=== PATIENT | female | born 1980 | race Caucasian/White ===

== ENCOUNTER 2018-10-24 12:27 | Outpatient (REF) | payer SELFPAY ==
[2018-10-25 00:10] LABS: FREE T4 0.99 ng/dL (0.76-1.46); TSH 6.72 uIU/mL (0.358-3.74)
== END 2018-10-24 12:47 ==
LOC: NCHCN 12:27
PROVIDERS: PCP Family Medicine; Visit Provider Family Medicine
DX: E03.9 Hypothyroidism, unspecified (principal)
CPT/HCPCS: 84439; 84443

== ENCOUNTER 2019-09-11 12:12 | Outpatient (REF) | payer MEDICAID, SELFPAY ==
--- NOTE | 2019-09-11 10:45 | PAPFT_PTH ---
PATIENT: Lisette Aranda LOC: [facility] U#:[id number] AGE/SX: 38/F ROOM: RE09/11/[address]: Tomasa Lanza V : 1980 BED: DIS: 09/11/2019 SPEC #: [id number] RECD: 09/12/19 12:47 STATUS: GRACE REQ #: [id number] STEPHAN: 09/11/19 10:[address]: Tomasa Lanza V DEPT: [facility] Cytology RECD BY: Adrianna Gupta Tissues: 1 - CX/ENDOCX FOR PAP SMEARS Procedures: PAP THIN PREP/UVM Screening Comments: [id number]
[2019-09-11 21:59] LABS: HGB 13.2 g/dL (12.0-15.5); Mean Corp. HGB Concentration 32.2 g/dL (32.0-36.0); Mean Corpuscular Hemoglobin 28.4 pg (27.0-33.0); Mean Corpuscular Volume 88.2 fL (80-95); Mean Platelet Volume 11.1 fL (8.0-11.0); Platelet Count 357 x1000/uL (130-400); RBC 4.65 m/cumm (4.00-5.20); RBC Distribution Width 13.8 % (11.7-14.6)
[2019-09-11 22:17] LABS: White Blood Cell Count 7.22 k/cumm (4.4-10.8)
[2019-09-11 22:26] LABS: Calculated LDL 130 mg/dL; Cholesterol 211 mg/dL (<200); Glucose 85 mg/dL (74-106); HDL Cholesterol 55 mg/dL (40-60); TSH 13.46 uIU/mL (0.36-3.74); Triglyceride 134 mg/dL (<150)
[2019-09-11 23:06] LABS: FREE T4 1.26 ng/dL (0.76-1.46)
== END 2019-09-11 12:32 ==
LOC: NCHCN 12:12
PROVIDERS: PCP Family Medicine; Visit Provider Family Medicine
DX: E03.9 Hypothyroidism, unspecified (principal); N92.1 Excessive and frequent menstruation with irregular cycle; Z01.419 Encounter for gynecological examination (general) (routine) without abnormal findings; Z12.4 Encounter for screening for malignant neoplasm of cervix; Z00.00 Encounter for general adult medical examination without abnormal findings
CPT/HCPCS: 80061; 82947; 85027; 88142; 84439; 84443

== ENCOUNTER 2019-09-19 03:19 | Outpatient (CLI) | payer MEDICAID, SELFPAY ==
--- NOTE | 2019-09-19 15:51 | DI.US_ITS ---
EXAM: US THYROID CLINICAL HISTORY: THYROMEGALY E01.0 TECHNIQUE: Ultrasound performed using standard protocol. COMPARISON: THYROID ULTRASOUND from 10/09/2014 FINDINGS: The right lobe of the thyroid gland measures 5.5 cm x 2.2 cm x 2.6 cm. The left lobe of the thyroid gland measures 6.1 cm x 3.3 cm x 3.5 cm. The isthmus measures 6 mm. Thyroid gland is diffusely heterogeneous without discrete mass. There is symmetric blood flow to the thyroid gland. IMPRESSION: Diffusely enlarged and heterogeneous thyroid gland. No discrete mass is present. This may represent an infiltrative or inflammatory thyroiditis. Please correlate clinically.
== END 2019-09-19 03:39 ==
PROVIDERS: PCP Family Medicine; Visit Provider Family Medicine
DX: E04.8 Other specified nontoxic goiter (principal); E01.0 Iodine-deficiency related diffuse (endemic) goiter
CPT/HCPCS: 76536

== ENCOUNTER 2020-07-22 21:51 | Emergency (ER) | payer MEDICAID, SELFPAY ==
[2020-07-22 21:55] VITALS: BP 108/85; PULSE 115; RESP 18; TEMP 37.2; O2SAT 98
--- NOTE | 2020-07-22 21:59 | ED.GENADUL_ITS ---
Discharge Plan Disposition Patient Disposition: HOME Condition: Good Discharge Details Clinical Impression: Dental infection Primary Care Provider: Tomasa Lanza V ED Provider: Eliu Clay [place] Meds and New Rx's Prescriptions: New amoxicillin-pot clavulanate [Augmentin] 875-125 mg tablet 1 tab PO Q12H Qty: 18 RF: 0 Discharge Instructions Instructions: Dental Abscess (ED) Additional Instructions: Take antibiotic as prescribed and finish the bottle regardless of how you are feeling. Alternate Tylenol with Motrin for pain. Use the benzocaine every 4-6 hours to help with pain. Contact dentist for follow-up next week. Return to ED for worsening pain/swelling, difficulty breathing, inability to swallow. Medical Decision Making Dental infection with induration but no definite abscess that is drainable here in ED. Will start on Augmentin and refer to dentistry next week. Return to ED for worsening symptoms, difficulty breathing, inability to swallow. HPI General Mode of arrival: ambulatory . Date/Time Provider Initiated Documentation: 07/22/20 21:59 . Limitations to Documentation: no limitations . Information obtained by: patient and RN notes reviewed . HPI Narrative: Patient presents to ED with right lower jaw pain with trauma and facial swelling and redness. Patient was fine yesterday. She woke up this morning with pain which is progressed to swelling and redness. She has no difficulty breathing or swallowing. She has no fever. She has had dental infections in the past. Related Data Home Medications Medication Instructions Recorded Confirmed amoxicillin-pot clavulanate 1 tab PO Q12H #18 tab 07/22/20 [Augmentin] Previous Rx's Medication Instructions Recorded amoxicillin-pot clavulanate 1 tab PO Q12H #18 tab 07/22/20 [Augmentin] Allergies Allergy/AdvReac Type Severity Reaction Status Date / Time topiramate [From Topamax] Allergy Mild HAND Unverified 07/22/20 22:18 PARESTHESIAS Review of Systems Narrative: As documented in HPI otherwise negative as below. Const: no fever, chills, weakness Resp: no cough, SOB, pleuritic pain CV: no CP, diaphoresis, edema, syncope GI: no abdominal pain, nausea, vomiting, diarrhea Neuro: no headache, numbness, focal weakness, confusion PFSH Medical History Hypothyroid Social History Smoking/Tobacco Use Status: Never Smoking risk assessment performed?: Yes Alcohol Intake: current Alcohol Intake frequency: holidays/special occasions only Drug use: Never Substance use type: does not use Do you feel safe at home: Yes Do you feel safe in your relationship?: Yes Exam Narrative Exam Narrative: Vitals: Afebrile. Mild tachycardia otherwise normal vitals and normal room air pulse ox. Const: WDWN female in NAD. HEENT: NC/AT. Right mandibular swelling with tenderness and induration. Mild erythema. Right lower gingival region tender and indurated. No definitive abscess. Floor of mouth normal. Eyes: Normal conjunctiva and sclera. Neck: Supple. Trachea midline. Right sided adenopathy. Lungs: Normal respiratory effort. Neuro: A+O x 3. Normal speech, mentation, gait. Cranial nerves II - XII grossly intact. No gross motor or sensory deficit. Skin: Warm and dry without rash.
[2020-07-22] MEDS: Benzocaine 20% Gel 30 GM JAR MM (22:18)
[2020-07-22] MEDS: Ibuprofen 600 MG TAB PO (22:18)
== END 2020-07-22 22:17 | disposition home or self-care (01) ==
LOC: ER 07-23 01:17
PROVIDERS: Emergency Provider Emergency Medicine; PCP Family Medicine
DX: R68.84 Jaw pain (principal); K04.7 Periapical abscess without sinus
CPT/HCPCS: 99283

== ENCOUNTER 2022-05-23 19:40 | Outpatient (REF) | payer MEDICAID, SELFPAY ==
[2022-05-23 15:20] LABS: ALT 25 U/L (14-59); AST 21 U/L (15-37); Albumin 4.1 g/dL (3.4-5.0); Alkaline Phosphatase 58 U/L (46-116); Anion Gap 7.1 mmol/L (3-11); BUN 12 mg/dL (7-18); Bilirubin, Total 0.6 mg/dL (0.2-1.0); CO2 29.9 mmol/L (21.0-32.0); CREATININE 0.8 mg/dL (0.55-1.02); Calcium 9.2 mg/dL (8.5-10.1); Chloride 104 mmol/L (98-107); FREE T4 1.34 ng/dL (0.76-1.46); Glucose 95 mg/dL (74-106); Potassium 3.7 mmol/L (3.5-5.1); Sodium 141 mmol/L (136-145); Total Protein 8.3 g/dL (6.4-8.2)
[2022-05-23 15:21] LABS: HCT 41.2 % (36.0-46.0); HGB 13.1 g/dL (11.2-15.7); MCH 28.3 pg (27.0-33.0); MCHC 31.8 % (32.0-36.0); MCV 89 fL (80-95); Platelet Count 281 10^3/uL (130-400); RBC 4.63 10^6/uL (3.93-5.22); RDW 13.3 % (11.7-14.6); RDW-SD 43.4 fL; WBC 7.17 10^3/uL (4.4-10.8)
[2022-05-23 16:55] LABS: Hemoglobin A1C 5.7 % (<5.7)
[2022-05-23 17:44] LABS: Calculated LDL 138 mg/dL (<100); Cholesterol 221 mg/dL (<200); HDL Cholesterol 59 mg/dL (40-60); Triglyceride 122 mg/dL (<150)
== END 2022-05-23 19:41 | disposition home or self-care (01) ==
LOC: NCHCN 19:40
PROVIDERS: PCP Family Medicine; Visit Provider Physician Assistant Medical
DX: R63.4 Abnormal weight loss (principal)
CPT/HCPCS: 80053; 80061; 85027; 83036; 84439; 84443

== ENCOUNTER → 2022-06-13 01:07 | Outpatient (CLI) | payer MEDICAID, SELFPAY ==
--- NOTE | 2022-06-13 12:15 | DI.MAMMO_ITS ---
Exam(s) MAMMO SCREENING EXAM: MAMMO SCREENING CLINICAL HISTORY: SCREENING, Z21.39, Z12.31. TECHNIQUE: Bilateral full field digital CC and MLO mammographic images were obtained with 3D tomosyn thesis and utilizing computer aided detection (CAD). COMPARISON: None. This is a baseline mammogram on this 41-year-old patient FINDINGS: Fibroglandular tissue pattern is moderately dense. In the left breast there is a partially calcified slightly lobulated nodular density medial of center approximately 7 cm in from the nipple and measuring 12 x 6 millimeters. This is probably a fibroade noma. No other significant left breast findings. In the opposite-right breast there is a subtle 6 x 5 millimeter nodular density medial of center appr oximately 5 cm in from the nipple, best seen on the CC view. Further imaging recommended There is no significant architectural distortion nor skin thickening-retraction. IMPRESSION: Bilateral findings as described above. Left breast probable fibroadenoma. Possible nodule also seen in the right breast. Recommend spot compression bilateral views and bilateral complete breast ultra sound. BI-RADS Category 0 - Assessment Incomplete: Need additional imaging evaluation Breast Density - Category C - Heterogeneously dense Breast density Category C or D implies that the patient has dense breast tissue. Dense breast tissue can make it harder to find cancer on a mammogram. Dense breast tissue is also associated with an incr eased risk of breast cancer. This information about the result of the mammogram report was provided to the patient to raise their awareness. Use this report when you speak with the patient about their risks for breast cancer, which includes their family history. At that time, you may recommend additional screening tests (Ultrasoun d or MRI) as these tests may add significant information. A negative radiographic report should not delay biopsy if a dominant or clinically suspicious mass is present. Up to ten percent of cancers are not identified on mammography. A negative report may reinforce clinical impression. Adenosis and dense breasts may obscure an underlying neoplasm. False positive reports average 6 to 10%. Patient will receive a letter notifying them of these results.
== END ==
PROVIDERS: PCP Family Medicine; Visit Provider Physician Assistant Medical
DX: Z12.31 Encounter for screening mammogram for malignant neoplasm of breast (principal); R92.8 Other abnormal and inconclusive findings on diagnostic imaging of breast
CPT/HCPCS: 77063; 77067

== ENCOUNTER → 2022-06-20 01:56 | Outpatient (CLI) | payer MEDICAID, SELFPAY ==
--- NOTE | 2022-06-20 | DI.US_ITS ---
Exam(s) US BREAST LT COMPLETE US BREAST RT COMPLETE MG MAMMO SCREEN CALL BACK BI EXAM: MG MAMMO SCREEN CALL BACK BI and bilateral complete breast ultrasound CLINICAL HISTORY: F/U MAMMO, LT BREAST NODULAR DENSITY, RT BREAST NODULAR DENSITY. TECHNIQUE: Craniocaudal and mediolateral oblique Full Field Digital Mammography views of the bilater al breast with Computer Aided Diagnosis followed by Tomosynthesis and bilateral breast ultrasound. COMPARISON: US US BREAST RT COMPLETE from 06/20/2022 US US BREAST LT COMPLETE from 06/20/2022 FINDINGS: Mammography/Tomosynthesis: Masses/Architectural Distortion: In the left breast, the well-circumscribed ovoid nodule with interna l calcifications is seen in the upper inner quadrant of the left breast. The calcifications have a c oarse appearance. In the right breast, no persistent mass is seen on the additional views. Microcalcifictions: No suspicious pleomorphic-type are seen. Skin Thickening/Nipple Retraction: None. Complete bilateral breast US: Echotexture: Normal appearance of the glandular tissue. Shadowing: No suspicious foci. Cyst: There is a 0.3 cm simple cyst at the 8 o'clock position of the right breast 5 cm from the nippl e. Solid lesions: There is a well-circumscribed nodule at the 10 o'clock position of the left breast 4 c m from the nipple. It contains internal echogenic foci consistent with the calcifications seen on th e mammogram. It measures 0.6 cm by 0.6 cm x 0.8 cm. Ductal dilation: None. IMPRESSION: 1. No definite evidence of malignancy is noted. 2. A six-month follow-up left mammogram and left breast ultrasound are requested for re-evaluation. 3. The findings were discussed with the patient on the date of the examination. BI-RADS Category 3 - 6 month - Probably Benign Finding: Recommend follow-up imaging in 6 months Breast Density - Category C - Heterogeneously dense Breast density Category C or D implies that the patient has dense breast tissue. Dense breast tissue can make it harder to find cancer on a mammogram. Dense breast tissue is also associated with an incr eased risk of breast cancer. This information about the result of the mammogram report was provided to the patient to raise their awareness. Use this report when you speak with the patient about their risks for breast cancer, which includes their family history. At that time, you may recommend additional screening tests (Ultrasoun d or MRI) as these tests may add significant information. A negative radiographic report should not delay biopsy if a dominant or clinically suspicious mass is present. Up to ten percent of cancers are not identified on mammography. A negative report may reinforce clinical impression. Adenosis and dense breasts may obscure an underlying neoplasm. False positive reports average 6 to 10%. Patient will receive a letter notifying them of these results.
== END ==
PROVIDERS: PCP Family Medicine; Visit Provider Physician Assistant Medical
DX: Z12.31 Encounter for screening mammogram for malignant neoplasm of breast (principal); R92.8 Other abnormal and inconclusive findings on diagnostic imaging of breast; N60.01 Solitary cyst of right breast; N63.22 Unspecified lump in the left breast, upper inner quadrant
CPT/HCPCS: 76642; 77063; 77067

== ENCOUNTER 2022-06-30 09:56 | Outpatient (REF) | payer MEDICAID, SELFPAY ==
--- NOTE | 2022-06-30 09:30 | PAPFT_PTH ---
PATIENT: Lisette Aranda LOC: [facility]#:[id number] AGE/SX: 41/F ROOM: RE06/30/[address]: Burt Shah : 1980 BED: DIS: 06/30/2022 SPEC #: [id number] RECD: 06/30/22 17:26 STATUS: GRACE REQ #: [id number] STEPHAN: 06/30/22 09:[address]: Burt Shah DEPT: [facility] Cytology RECD BY: Adrianna Gupta ENTERED: 06/30/22 17:26 SP TYPE: PAPFT OTHR DR: Tomasa Lanza V Tissues: 1 - CX/ENDOCX FOR PAP SMEARS Procedures: PAP THIN PREP/UVM Screening HPV DNA PROBE Comments: [id number]
[2022-06-30 17:01] LABS: TSH 3.07 uIU/mL (0.36-3.74)
== END 2022-06-30 09:57 | disposition home or self-care (01) ==
LOC: NCHCN 09:56
PROVIDERS: PCP Family Medicine; Visit Provider Physician Assistant Medical
DX: Z12.4 Encounter for screening for malignant neoplasm of cervix (principal); Z11.51 Encounter for screening for human papillomavirus (HPV)
CPT/HCPCS: 88142; 84443; 87624

== ENCOUNTER → 2022-08-22 02:54 | Outpatient (CLI) | payer MEDICAID, SELFPAY ==
[2022-08-22] MEDS: Barium Sulfate 2% W/V-Berry Smoothie 450 ML BTL PO ×2 (08:32)
--- NOTE | 2022-08-22 10:00 | DI.CT_ITS ---
Exam(s) CT ABDOMEN PELVIS W EXAM: CT ABDOMEN PELVIS W CLINICAL HISTORY: LUQ PAIN, R10.12 TECHNIQUE: Imaging Protocol: Axial computed tomography images with coronal and sagittal reformatted images were created and reviewed CONTRAST MATERIAL: Intravenous: Omnipaque 350 Contrast volume:100 mL Oral: Yes COMPARISON: CT RENAL COLIC WO CONTRAST from 06/29/2011 FINDINGS: ABDOMEN: Lung Bases: Normal where visualized. Liver: Normal density. No measurable mass. Area of what appears to be focal fatty infiltration in the right lobe of the liver. Portal, Superior Mesenteric, and Splenic Veins: Unremarkable. Gallbladder and Biliary Tract: Status post cholecystectomy. There is intra and extrahepatic biliary ductal dilatation. The common duct measures 1.6 cm. No choledocholithiasis is appreciated. Pancreas: Normal density, no abnormal calcifications or inflammatory process. Spleen: Normal. Adrenals: No masses seen. Kidneys: Normal size, contour and axis. No radiodense stones or obstructive uropathy. There is a 0.7 cm simple cyst in the right kidney. No follow-up is recommended. Abdominal Aorta: Abdominal portion non-dilated. Bowel: No obstruction or bowel wall thickening. Appendix is unremarkable. There is a large amount of stool throughout the colon particularly the rectum. But no bowel wall thickening is identified. Peritoneal Cavity: No ascites, collection or mesenteric inflammatory response. No free air. Lymph Nodes: Within normal limits. Bones: Within normal limits for the patient's age. Soft Tissues: Unremarkable. PELVIS: Bladder: Limited distension of the urinary bladder. No gross abnormalities identified. Reproductive Organs: Unremarkable as visualized. Lymph Nodes: Within normal limits. Bones: Within normal limits for the patient's age. IMPRESSION: 1. Intra and extrahepatic biliary ductal dilatation. No obvious choledocholithiasis or pancreatic ma ss is seen. The common duct measures up to 1.6 cm. Further evaluation with MRCP may be considered i n this patient. 2. Status post cholecystectomy. 3. Findings suggestive of constipation. RADIATION DOSE DELIVERED: 979.24mGy.cm Total DLP DATA REPOSITORY: All CT scans at this facility are submitted to the National Radiology Data Registry (NRDR) Dose Index Registry (DIR) with the [employer] (ACR). RADIATION OPTIMIZATION: All CT scans at this facility use at least one of these dose optimization te chniques: automated exposure control; mA and/or kV adjustment per patient size (includes targeted exa ms where dose is matched to clinical indication); or iterative reconstruction.
[2022-08-22] MEDS: Omnipaque 350 MG/ML 100 ML BTL IJ (10:06)
== END ==
PROVIDERS: PCP Family Medicine; Visit Provider Physician Assistant Medical
DX: R10.12 Left upper quadrant pain (principal); N28.9 Disorder of kidney and ureter, unspecified
CPT/HCPCS: 74177; J3490

== ENCOUNTER → 2022-09-20 02:00 | Outpatient (CLI) | payer MEDICAID, SELFPAY ==
--- NOTE | 2022-09-20 | DI.MRI_ITS ---
Exam(s) MR ABDOMEN WO EXAM: MR ABDOMEN WO CLINICAL HISTORY: ABNL ABD IMAGING R93.5, CT 08/22/22 TECHNIQUE: Multiplanar multisequence MRI of the Abdomen was performed. COMPARISON: CT CT ABDOMEN PELVIS W from 08/22/2022 FINDINGS: Liver: Unremarkable. No evidence of a hepatic mass. Pancreas: Unremarkable. No evidence of a pancreatic mass or peripancreatic fluid collection. Gallbladder and Bile Ducts: Status post cholecystectomy. The common duct measures up to 1.5 cm. No intraluminal mass is seen. No evidence of choledocholithiasis. Adrenals: Unremarkable. Kidneys: There are 2 simple cysts in the lower pole of the right kidney. The larger measures 7 mm. The smaller measures 5 mm. No follow-up is recommended. No solid renal mass is seen. No evidence o f hydronephrosis. Spleen: Unremarkable. Bowel: Unremarkable. Aorta: Unremarkable. Soft Tissues: Unremarkable. Bone: Unremarkable. Lymph Nodes: Unremarkable. IMPRESSION: 1. Status post cholecystectomy. 2. The common duct measures up to 1.5 cm in diameter. This may be secondary to the patient's cholecy stectomy. No intraluminal mass or choledocholithiasis is seen. No obvious obstructing lesion is michelle ntified. If there is continued clinical concern, ERCP may be considered. 3. No evidence of a pancreatic mass. DATA REPOSITORY:
== END ==
PROVIDERS: PCP Family Medicine; Visit Provider Physician Assistant Medical
DX: N28.1 Cyst of kidney, acquired (principal); Z90.49 Acquired absence of other specified parts of digestive tract; R93.5 Abnormal findings on diagnostic imaging of other abdominal regions, including retroperitoneum
CPT/HCPCS: 74181

== ENCOUNTER 2023-04-02 21:14 | Emergency (ER) | payer MEDICAID, SELFPAY ==
[2023-04-02 21:21] VITALS: BP 149/123; PULSE 93; RESP 16; TEMP 37; O2SAT 98
--- NOTE | 2023-04-02 21:30 | DI.RAD_ITS ---
Exam(s) XR ELBOW RT COMPLETE EXAM: XR ELBOW RT COMPLETE CLINICAL HISTORY: pain. TECHNIQUE: 2D digital imaging was performed. COMPARISON: No exams were available for comparison FINDINGS: 3 views No evidence of fracture or joint effusion or swelling of the olecranon bursa. Calcification is noted in the soft tissues posterior to the olecranon at the level of the triceps tendon insertion site. T here is no swelling at this level. Radial head and neck appear unremarkable. Epicondyles unremarkab le. IMPRESSION: Soft tissue calcification posteriorly but without overlying soft tissue swelling. No obvious acute f ractures. No evidence of elbow joint effusion. Correlation with site of tenderness recommended. DATA REPOSITORY: RADIATION DOSE DELIVERED:
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
[2023-04-02 22:49] VITALS: BP 146/90
--- NOTE | 2023-04-02 22:54 | DI.VRAD_ITS ---
PROCEDURE INFORMATION: Exam: XR Right Elbow Exam date and time: 04/02/2023 9:53 PM Age: 42 years old Clinical indication: Pain; Elbow; Right TECHNIQUE: Imaging protocol: Radiologic exam of the right elbow. Views: 3 or more views. COMPARISON: No relevant prior studies available. FINDINGS: Bones/joints: Chronic ossicle at the olecranon. No acute fracture or dislocation. Minimal degenerative changes at the coronoid process Soft tissues: Normal. IMPRESSION: No acute findings. Dictated and Authenticated by: Shubham Recio MD. Ordering:KEIRA Thurston MD
== END 2023-04-02 22:52 | disposition home or self-care (01) ==
PROVIDERS: Emergency Provider Emergency Medicine; PCP Physician Assistant Medical
DX: S50.01XA Contusion of right elbow, initial encounter (principal); V28.41XA Electric (assisted) bicycle driver injured in noncollision transport accident in traffic accident, initial encounter; Y93.55 Activity, bike riding; Y92.89 Other specified places as the place of occurrence of the external cause; Y99.9 Unspecified external cause status
CPT/HCPCS: 99283; 73080

== ENCOUNTER 2023-04-19 03:22 | Outpatient (CLI) | payer MEDICAID, SELFPAY ==
--- NOTE | 2023-04-19 | DI.RAD_ITS ---
Exam(s) XR ELBOW RT COMPLETE EXAM: XR ELBOW RT COMPLETE CLINICAL HISTORY: RT ELBOW PAIN, M25.521. TECHNIQUE: 2D digital imaging was performed. COMPARISON: CR,XR XR ELBOW RT COMPLETE from 04/02/2023 FINDINGS: 3 views There is no evidence of fracture nor joint effusion. Radial head and neck appear unremarkable. No d egenerative changes. No osteochondral defects. Epicondyles unremarkable. On the lateral view there is a calcific density posteriorly at the insertional aspect of the triceps on the posterior olecranon. There is, however, no overlying swelling in the olecranon bursa. IMPRESSION: Mild findings as above. No acute fractures. DATA REPOSITORY: RADIATION DOSE DELIVERED:
== END 2023-04-19 03:42 ==
LOC: DI 03:22
PROVIDERS: PCP Physician Assistant Medical; Visit Provider Family Medicine
DX: M25.521 Pain in right elbow (principal)
CPT/HCPCS: 73080

== ENCOUNTER → 2023-05-22 01:52 | Outpatient (CLI) | payer MEDICAID, SELFPAY ==
--- NOTE | 2023-05-22 07:15 | DI.MRI_ITS ---
Exam(s) MR UPPER JOINT RT WO EXAM: MR UPPER JOINT RT WO CLINICAL HISTORY: PAIN, elbow sprain ulnar collateral ligament, S53.783A. TECHNIQUE: Multiplanar multisequence MRI was performed. COMPARISON: CR XR ELBOW RT COMPLETE from 04/19/2023 FINDINGS: BONES: There is no fracture or contusion pattern. JOINTS: The articular cartilage is unremarkable. No joint effusion is present. TENDONS: Common flexors: There is mild hyperintense signal seen in the common extensor tendon. Common extensors: Unremarkable. Biceps: Unremarkable. Triceps: Unremarkable. MUSCLES: Unremarkable. MEDIAN NERVE: Unremarkable on this noncontrast examination. ULNAR NERVE: Unremarkable on this noncontrast examination. There is mild edema seen adjacent to the u lnar nerve near the common flexor tendon insertion site. SOFT TISSUES: There is mild edema in the soft tissues medial to the medial epicondyle. No focal flui d collection is seen. LIGAMENTS: Ulnar collateral: Unremarkable. Radial collateral: Unremarkable. OTHER: IMPRESSION: 1. Findings a medial epicondylitis. 2. Unremarkable ulnar collateral ligament. 3. Mild edema in the soft tissues adjacent to the medial epicondyle including adjacent to the ulnar n erve. No focal fluid collection is seen. DATA REPOSITORY:
== END ==
PROVIDERS: PCP Physician Assistant Medical; Visit Provider Student in an Organized Health Care Education/Training Program
DX: S53.441A Ulnar collateral ligament sprain of right elbow, initial encounter (principal); X58.XXXA Exposure to other specified factors, initial encounter
CPT/HCPCS: 73221